=== PATIENT | female | born 1965 | race Two or more races ===

== ENCOUNTER 2018-03-08 13:15 | Emergency (ER) | payer SELFPAY ==
[~2018-03-08] VITALS: Ht 167.6 cm; Wt 117.5 kg
[2018-03-08 13:34] VITALS: Ht 167.6 cm; Wt 117.5 kg
[2018-03-08 15:51] VITALS: BP 140/84
== END 2018-03-08 15:52 | disposition home or self-care (01) ==
LOC: ED 13:15
DX: S40.011A Contusion of right shoulder, initial encounter (principal); W01.0XXA Fall on same level from slipping, tripping and stumbling without subsequent striking against object, initial encounter; Y93.89 Activity, other specified; Y92.89 Other specified places as the place of occurrence of the external cause; Y99.8 Other external cause status
CPT/HCPCS: J1885

== ENCOUNTER 2019-08-24 15:05 | Emergency (ER) | payer OTHER ==
[~2019-08-24] VITALS: Ht 167.6 cm; Wt 81.6 kg
[2019-08-24 15:22] VITALS: Ht 167.6 cm; Wt 81.6 kg
[2019-08-24 16:56] LABS: BASOPHIL % 0.3 % (0-2)
[2019-08-24 17:07] LABS: PLATELET COUNT 493 x10^3mcL (130-400); RED CELL DISTRIBUTION WIDTH 20.3 % (11.5-14.5)
[2019-08-24 17:17] LABS: rbc morphology (normal/abnorm) ABNORMAL (NORMAL)
[2019-08-24 17:45] LABS: CARBON DIOXIDE 29.9 mmol/L (21-32); CHLORIDE SERUM 101 mmol/L (98-107); CREATININE SERUM 0.6 mg/dL (0.6-1.0); GFR1 > 60 mL/min; GLUCOSE SERUM 98 mg/dL (74-106); POTASSIUM SERUM 3.9 mmol/L (3.5-5.1); SODIUM SERUM 136 mmol/L (136-145)
[2019-08-24 19:07] VITALS: BP 128/72
== END 2019-08-24 19:17 | disposition home or self-care (01) ==
LOC: ED 15:05
PROVIDERS: Emergency Medicine
DX: R42 Dizziness and giddiness (principal)
CPT/HCPCS: J2405; J8597

== ENCOUNTER 2019-10-08 19:50 | Emergency (ER) | payer OTHER ==
[~2019-10-08] VITALS: Ht 167.6 cm; Wt 105.2 kg
[2019-10-08 20:08] VITALS: Ht 167.6 cm; Wt 105.2 kg
[2019-10-08 21:53] VITALS: BP 116/60
== END 2019-10-08 21:53 | disposition home or self-care (01) ==
LOC: ED 19:50
DX: S61.431A Puncture wound without foreign body of right hand, initial encounter (principal); L08.9 Local infection of the skin and subcutaneous tissue, unspecified; W54.0XXA Bitten by dog, initial encounter; Y93.89 Activity, other specified; Y92.89 Other specified places as the place of occurrence of the external cause; Y99.8 Other external cause status
CPT/HCPCS: 90715; Q0092

== ENCOUNTER 2019-10-13 19:38 | Emergency (ER) | payer OTHER ==
[~2019-10-13] VITALS: Ht 167.6 cm; Wt 103.1 kg
[2019-10-13 20:42] VITALS: BP 149/89
== END 2019-10-13 20:42 | disposition home or self-care (01) ==
LOC: ED 19:38
DX: L02.511 Cutaneous abscess of right hand (principal); W54.0XXD Bitten by dog, subsequent encounter

== ENCOUNTER 2019-10-15 10:27 | Emergency (ER) | payer OTHER ==
[~2019-10-15] VITALS: Ht 167.6 cm; Wt 101.6 kg
[2019-10-15 10:58] VITALS: BP 123/53; Ht 167.6 cm; Wt 101.6 kg
== END 2019-10-15 13:00 | disposition home or self-care (01) ==
LOC: ED 10:27
DX: S61.451D Open bite of right hand, subsequent encounter (principal); X58.XXXD Exposure to other specified factors, subsequent encounter